=== PATIENT | female | born 1990 | race Caucasian/White ===

== ENCOUNTER 2025-10-21 18:01 | Emergency (ER) | payer OTHER ==
[~2025-10-21] VITALS: Ht 157.4 cm; Wt 80.7 kg
[~2025-10-21 18:01] MED LIST: AMOXICILLIN500 MG PO
[2025-10-21] MEDS ORDERED: AMOX-CLAV 875-1 EACH PO (19:55)
[2025-10-21] MEDS ORDERED: Amoxicillin/Clavulanate Pota 875 MG TAB PO ONE (20:00)
== END 2025-10-21 19:56 | disposition home or self-care (01) ==
LOC: ED 18:01
DX: U07.1 COVID-19 (principal); M54.50 Low back pain, unspecified; R07.89 Other chest pain